=== PATIENT | female | born 1945 | race Caucasian/White ===

== ENCOUNTER 2016-09-23 04:13 | Inpatient (IN) | payer MEDICARE ==
[~2016-09-23] VITALS: Ht 170.2 cm; Wt 89.3 kg
--- NOTE | ~2016-09-23 | ECH ---
Transthoracic Echocardiography Report (TTE) Demographics Patient Name ROBERT PEDRAZA Date of Study 09/23/2016 Patient Number [id number] Visit Number [id number] Date of 1945 Room Number 411 Accession Number [id number] Gender Female Age 71 year(s) Referring Cassius BE Assembler [employer] Gill Rosenbaum [facility] Physician Cheko Hawthorne MD Physician Interpreting Jessica Botello MD Antenna Specialist Physician Supervising Ordering Physician Lluvia Hawthorne MD/IESHA BE Nurse Stress Party Host/Hostess Conclusions Summary Technically good exam. The estimated left ventricular ejection fraction is 50-55%. Severe left ventricular hypertrophy. The interventricular septum is flattened which is consistent with right ventricular pressure / and or volume overload. Mild to moderately dilated right ventricle with normal systolic function. Right ventricular wall thickness 0.86cm suggestive of right ventricular pressure overload. The left atrium is severely dilated by LA volume index measurement. Tricuspid leaflets do not completely coapt with severe tricuspid regurgitation by color Doppler. Pleural effusion present. Procedure Type of Study TTE procedure:Echo Complete SF. Procedure Date Date: 09/23/2016 Start: 11:13 AM Technical Quality: Good visualization Indications:Congestive heart failure, non-ischemic cardiomyopathy and paroxysmal a-fib. Additional Indications:pacemaker Appropriate Use Criteria: 9 Height: 67 inches Weight: 207 pounds BSA: 2.05 m Rhythm: Paced HR: 60 bpm BP: 110/66 mmHg M-Mode/2D Measurements LV Diastolic Dimension: 4.08 cm LV Systolic Dimension: 3.73 cm LV Septum Diastolic: 2.02 cm LV PW Diastolic: 1.89 cm AO Root Dimension: 2.63 cm Cardiac Output: 3.51 l/min LA Dimension: 5.27 cm Cardiac Index: 1.71 l/min*m RV Diastolic Dimension: 4.47 cm LA volume index: 55 ml/m LVOT: 1.98 cm LVOT VTI: 19.02 cm RV Base: 6 cm LV Stroke volume: 58.53 ml RV Mid: 4.6 cm LV Stroke volume index: 28.55 ml/m RV Length: 8.1 cm TAPSE: 2.2 cm TDI-S': 10 cm/s Doppler Measurements AV Peak Velocity: 1.2 m/s MV Peak E-Wave: 1.12 m/s AV Peak Gradient: 5.76 mmHg AV Mean Gradient: 3.33 mmHg LVOT Peak Velocity: 0.84 m/s AV Area (Continuity):2.35 cm PV Peak Velocity: 1.32 m/s TR Velocity:2.2 m/s PV Peak Gradient: 6.97 mmHg TR Gradient:19.36 mmHg Estimated PASP: 34.36 mmHg Estimated RAP:15 mmHg Estimated RVSP: 34 mmHg RA Area: 27.88 cm Findings Left Ventricle The left ventricle is normal in size . Severe left ventricular hypertrophy. Diastolic function indeterminate due to patient's arrhythmia. The interventricular septum is flattened which is consistent with right ventricular pressure / and or volume overload. Right Ventricle Mild to moderately dilated right ventricle with normal systolic function. Right ventricular wall thickness 0.86cm suggestive of right ventricular pressure overload. Device lead noted in the right ventricle. Left Atrium The left atrium is severely dilated by LA volume index measurement. Right Atrium The right atrium is severely dilated. Device lead seen in the right atrium. Mitral Valve Mild thickening of the mitral valve leaflets. Mild mitral regurgitation by color Doppler. Aortic Valve The aortic valve is mildly sclerotic. There is trivial aortic regurgitation by color Doppler. Tricuspid Valve Tricuspid leaflets do not completely coapt with severe tricuspid regurgitation by color Doppler.Estimated pulmonary pressures within normal range. Pulmonic Valve Normal pulmonic valve structure and function. Mild pulmonic valve regurgitation by color Doppler. Mildly dilated pulmonary artery. Pericardial Effusion Trivial pericardial effusion. Miscellaneous The ascending aorta appears mildly dilated. The maximum diameter measures 3.89 cm. Pleural Effusion Pleural effusion present. Contractility Score LV regional wall motion:(0-Non visualized 1-Normal 2-Hypokinesis 3-Akinesis 4-Dyskinesis 5-Aneurysm) Signature
--- NOTE | ~2016-09-23 | WND ---
ADMIT: 09/23/2016 RM/LOC: 411 [facility] MR#: [id number] [id number] [place], [place] [address] IRENE PEDRAZA [address] [place] [address] Wound Care Clinic SEX: F AGE: 71 : 1945 DATE OF VISIT: 09/24/2016 DIAGNOSIS: Stasis edema. TIME OF VISIT: 40 minutes. HISTORY OF PRESENT ILLNESS: Irene is a morbidly obese 71-year-old female, who was admitted through the emergency room on 09/23/2016, with increasing shortness of breath. The patient was found to have lymphedema in her left upper extremity and bilateral lower extremities. She was admitted to the hospital for the shortness of breath and wheezing and a history of congestive heart failure. They are planning to diurese her while she is in the hospital. PAST MEDICAL HISTORY: Microcytic anemia with myelodysplastic syndrome; history of GI bleed; chronic diastolic congestive heart failure, status post pacemaker; paroxysmal atrial fibrillation; lymphedema and elephantiasis of 3 extremities, bilateral lower extremities and left upper extremity; nonischemic cardiomyopathy, status post cardiac cath x4, with normal vessels; hypertension; and degenerative joint disease. This was obtained per her chart. PAST SURGICAL HISTORY: Per the chart. Left shoulder surgery x3, left mastectomy for breast cancer, cardiac ablation and permanent pacemaker implantation, laparoscopic cholecystectomy. SOCIAL HISTORY: The patient resides in her own home with her cousin. She denies any tobacco or alcohol use. She reports that she gets around with a walker. She is having increasing difficulty getting around due to the increase of fluid she is carrying. MEDICATIONS: 1. Coreg. 2. Nexium. 3. Clopidogrel. 4. Amlodipine. 5. Atorvastatin. 6. Isosorbide. ALLERGIES: Bactrim and sulfa. PHYSICAL EXAMINATION: GENERAL: Reveals an alert and oriented 71-year-old female, in no acute distress. EXTREMITIES: Assessment of bilateral lower extremities reveals no hair growth below the knee. She has 1+ dorsalis pedis pulses bilaterally. She has lymphedema and skin changes to bilateral lower extremities on the distal two- thirds of her legs. She has lymphedema nodules. She has no open or draining ADMIT: 09/23/2016 RM/LOC: 411 [facility] MR#: [id number] [address] [address] IRENE PEDRAZA [address] [place] [address] Wound Care Clinic SEX: F AGE: 71 : 1945 areas at this time. She has swelling in her toes bilaterally. She has brawny edema to bilateral lower extremities. ASSESSMENT: Lymphedema without any open wounds at this time. PLAN: After they gave her a shower as she was very unkempt on admission with significant body odor, I applied an Unna Boot Primer using the Calmoseptine impregnated gauze starting at the base of the toes to the popliteal fossa wrapping in a spiral fashion. I then used Coban from the base of the toes to the popliteal fossa. The patient tolerated the procedure well. We will follow up with her on 09/28/2016, for the next Unna Boot change. [facility] recommends lymphedema massage. Elizabeth Soto APRN/ leni JOB #: [id number] CC: Chapo Teixeira, Attending Physician Chapo Teixeira, Family Physician
[~2016-09-23 04:13] MED LIST: ASPIR-LOW81 MG PO; BENICAR40 MG PO; CARAFATE1 GM PO; COREG25 MG PO; HYDROCODON-ACE1 EAC4 PO; IMDUR DPS30 MG PO; KLOR-CON M2020 ME1 PO; KLOR-CON M2020 MEQ PO; LASIX40 M1 PO; LIPITOR DPS10 MG PO; LIPITOR DPS20 MG PO; MAALOX DPS30 ML PO; NEXIUM40 MG PO; NORVASC5 MG PO; PLAVIX75 MG PO; SINGULAIR10 MG PO; SURFAK DPS240 MG PO; TYLENOL DPS325 MG PO
--- NOTE | 2016-09-23 19:11 | ER ---
ADMIT: 09/23/2016 RM/LOC: ER [facility] MR#: [id number] [address] [facility] [address] [place], [place] [address] ROBERT PEDRAZA [address] [place], [place] [address] Emergency Room Report SEX: F AGE: 71 : 1945 DATE: 09/23/2016 HISTORY OF PRESENT ILLNESS: The patient is a 71-year-old female with a past medical history of COPD, hypertension, CHF, sleep apnea, breast cancer, [place], and status post pacemaker biventricular. The patient was brought to the ER with increased shortness of breath today since this morning. The patient denies any chest pain, and states she has recently had more shortness of breath during the last month, more episodes. The patient had wheezing en route and received 1 breathing treatment with DuoNeb, which per patient resolved a lot of her respiratory distress. In the ER, the patient had O2 saturation of 98% on room air, was mildly tachypneic with 22 to 24, and the blood pressure was 105 over 80s, and pulse was normal. EKG showed paced rhythm, ventricular paced, the Sgarbossa criteria was negative and troponin was negative. PHYSICAL EXAMINATION: HEAD and NECK: Noncontributory. CHEST: The patient had bilateral wheezing with questionable decreased breath sound in posterior left lower lung. ABDOMEN: Soft. EXTREMITIES: Left upper extremity has big lymphedema and bilateral lower extremities have big swelling, edema too. LABORATORY DATA AND IMAGING: Chest x-ray was suggestive of atelectasis and mild effusion without any obvious infiltration. The patient received another breathing treatment in the ER. WBC was 2.6, with absolute neutrophil count of 1.8. Sodium was 140 with potassium of 3.6 and glucose of 135, creatinine was 1.2, proBNP was 4670. D-dimer was elevated to 1.1, which could be caused by both cancer versus PE versus other causes. CT angiogram of the chest was negative for PE. The patient states she feels way better and very close to her baseline. The patient was not tachypneic anymore and lungs did not have any wheezing or crackles. The patient's blood pressure was 105 systolic, and there was no much space for diuresis. The patient was discharged to home with return precautions, prescription for Levaquin and prednisone, and follow up with the primary doctor today. Plan was discussed with the patient and she agreed upon it, and she acknowledged she understood it. Chino Cuevas MD/ leni JOB #: [id number] CC: Chino Cuevas MD, Attending Physician
[2016-10-01] MEDS ORDERED: NITROSTAT0.4 MG SL (19:56)
[2016-10-01] MEDS ORDERED: LAMISIL250 MG PO (19:56)
[2016-10-01] MEDS ORDERED: LAMISIL TP (19:57)
[2016-10-01] MEDS ORDERED: SURFAK DPS240 MG PO (19:57)
[2016-10-01] MEDS ORDERED: TYLENOL DPS325 MG PO (19:57)
[2016-10-01] MEDS ORDERED: XARELTO15 MG PO (19:57)
[2016-10-01] MEDS ORDERED: MYCOSTATIN PWD15 GM TP (19:58)
--- NOTE | 2016-10-03 15:25 | HP ---
ADMIT: 09/23/2016 RM/LOC: 411 [facility] MR#: [id number] [address] [facility] [address] [place], [place] [address] ROBERT PEDRAZA [address] [place] [address] History and Physical SEX: F AGE: 71 : 1945 DATE OF SERVICE: CHIEF COMPLAINT: Shortness of breath and wheezing. HISTORY OF PRESENT ILLNESS: The patient is a 71-year-old female, patient of Dr. Taveras with a history of COPD and CHF who was brought into the ER with increased shortness of breath, gradually worsening over the last 3-4 weeks. The patient states that she does have a history of CHF, has been in the hospital multiple times with aggressive diuresis of upwards of 80 pounds at a time. She has some chronic lower extremity swelling and lymphedema of the left arm, but she states gradually over the last weeks to months, she has been retaining more water, gaining weight and subsequently being less active and less ambulatory. It has gotten to the point where she cannot stand up on her own and cannot ambulate around the trailer that she lives in with her elderly cousin. She cannot perform the ADLs for herself and has difficulty bathing, dressing, and toileting. She noticed some increased chest fullness and orthopnea and came in to the hospital for these problems. ER COURSE: The patient was given 2 DuoNebs, had oxygen saturation 98% on room air. EKG showed ventricular paced rhythm. D-dimer was elevated, so CTA of the chest was performed which was negative. The patient was set to go home with diagnosis of COPD exacerbation with Levaquin and prednisone, but requested not to stay and did not feel like she could take care of herself at home. So we were consulted for admission. PAST MEDICAL HISTORY: Per the chart, the patient has a history of microcytic anemia with myelodysplastic syndrome; history of GI bleed; chronic diastolic CHF status post pacemaker; paroxysmal atrial fibrillation; lymphedema and elephantiasis of 3 extremities, bilateral lower extremities, and left upper extremity; nonischemic cardiomyopathy status post cardiac cath x4 with normal vessels; hypertension; and DJD. PAST SURGICAL HISTORY: Per the chart; left shoulder surgery x3, left mastectomy for breast cancer, cardiac ablation and permanent pacemaker implantation, lap alfred. SOCIAL HISTORY: The patient denies any tobacco or alcohol use. She lives with an elderly cousin in a trailer home and she has exceeded the cousin's capacity to care for her. She is unable to tolerate ADLs herself. She says she does get around with a walker, but she is retaining so much fluid, she is unable to even ambulate with this. MEDICATIONS: 1. Coreg 25 mg twice daily. 2. Nexium 40 mg twice daily. 3. Clopidogrel 75 mg daily. 4. Amlodipine 10 mg daily. 5. Atorvastatin 20 mg daily. 6. Isosorbide 30 mg daily. ADMIT: 09/23/2016 RM/LOC: 411 [facility] MR#: [id number] [address] [address] ROBERT PEDRAZA [address] [place] [address] [address] [place] [id number] History and Physical SEX: F AGE: 71 : 1945 ALLERGIES: BACTRIM AND SULFA. PHYSICAL EXAMINATION: VITAL SIGNS: Temp 95.6, pulse 60, respirations 16, blood pressure 110/66, and O2 sat 92% on room air. GENERAL: The patient is somewhat disoriented to the date, but otherwise in no acute distress. HEENT: Normocephalic and atraumatic. EOMI. Mucous membranes are moist. NECK: Positive JVD. No bruits noted. No lymphadenopathy palpated. CARDIOVASCULAR: The patient had a blowing systolic murmur. Loud S2, soft S3 noted. ABDOMEN: Distended. Obvious ascites, decreased bowel sounds. LUNGS: Distant due to the patient's body habitus, but some trace wheezes noted diffusely. MUSCULOSKELETAL: The patient had thick, brawny venostasis dermatitis bilateral lower extremities and greatly enlarged lymphedema of the left hand, fingers, and arm, up to the shoulder. NEURO: Cranial nerves II through XII grossly intact. ASSESSMENT AND PLAN: 1. Congestive heart failure exacerbation. 2. Failure to thrive. 3. Chronic bilateral lower extremity edema. 4. Congestive heart failure and nonischemic cardiomyopathy status post pacemaker. We will admit the patient for CHF exacerbation and diuresis. We will fluid restrict her and start her on a cardiac diet. We will hold her amlodipine for her low blood pressures. The patient will need consult from Wound Care, PT/OT and social work for placement and services as she is unable to return back to her home in her current condition and medical state. We will consult Cardiology as she follows with them for her multiple cardiac problems, help with diuresis and medical optimization. We will also get wound care consult for her significant lower extremity stasis dermatitis edema and her significant pressure ulcer risk. I will also obtain an echo as last echo was in 2014 showed an EF of 50% and moderately dilated left ventricle, severely dilated left and right atrium, severe tricuspid regurgitation. Rhys Melton MD Resident / Chapo Teixeira MD / leni JOB #: [id number] CC: Chapo Teixeira, Attending Physician Chapo Teixeira, Family Physician
--- NOTE | 2016-10-11 17:44 | DS ---
ADMIT: 09/23/2016 RM/LOC: 411 [facility] MR#: [id number] [address] [place], [place] [address] ROBERT PEDRAZA [address] [place] [address] Discharge Summary SEX: F AGE: 71 : 1945 ADMISSION DATE: 09/23/2016 DISCHARGE DATE: 09/30/2016 DISCHARGE DIAGNOSES: 1. Acute on chronic diastolic congestive heart failure. 2. Lymphedema. 3. Permanent atrial fibrillation, now on Xarelto. 4. [place] AICD (Automatic Implanted Cardiac Defibrillator). 5. Severe tricuspid regurgitation. 6. Myelodysplastic syndrome. CONSULTS: Cardiology, Dr. Hammonds. PROCEDURES: None. BRIEF HISTORY OF PRESENT ILLNESS: The patient is a 71-year-old female, a patient of Dr. Taveras, with a history of COPD and CHF who came into the ER with worsening shortness of breath over the last 3-4 weeks. The patient noted she did have history of CHF. She has been in the hospital multiple times with aggressive diuresis upwards of 80 pounds at a time. Last hospitalization was about 2 years ago. She does follow with [facility] for multiple cardiac problems but has not seen them in over a year as well. She notes that she lives at home with an elderly cousin in a trailer, has not been able to perform her ADLs for herself, has difficulty getting around the trailer and so came into the emergency room for this. In the emergency room, she was treated as COPD exacerbation with breathing treatments. Had a CT of the chest which did not reveal any pulmonary embolism but did show some bilateral pleural effusions. She was obviously fluid overloaded. She was admitted for CHF exacerbation for IV diuresis and for cardiac consultation. HOSPITAL COURSE: Cardiology saw the patient. Agreed with diagnosis of CHF exacerbation. She was started on IV Lasix. Her estimated dry weight was around 200 pounds. On admission she weighed 273 pounds. Cardiology also noted that she has permanent atrial fibrillation but was not on adequate anticoagulation so they started Xarelto and discontinued her Plavix. PT, OT and wound care saw the patient. They walked with her and her exercise tolerance improved as diuresis was ongoing during the hospital stay. Wound care addressed her significant stasis dermatitis as well as her lymphedema and got her on a lymphedema massage regimen that she is going to continue as an outpatient. She was placed in Unna boots for her stasis dermatitis and lower extremity swelling. The patient diuresed very well. Had a net loss of 8 L the 1st day, 8 L the 2nd day, 6 L the 3rd day and so on throughout her hospitalization. As creatinine slowly began to rise, diuresis was scaled back. Eventually on the end of the hospitalization, the patient weighed 196 pounds which was a net loss of 78 pounds from admission. Her creatinine at that point was 1.7. She was switched over to p.o. Lasix and tolerated this well. She was ambulating much better. Shortness of breath was resolved and she vehemently opposed placement in a residential unit for rehabilitation. Social Work was consulted. She did agree to home health care services at ADMIT: 09/23/2016 RM/LOC: 411 [facility] MR#: [id number] [address] [address] ROBERT PEDRAZA [address] [place] [address] Discharge Summary SEX: F AGE: 71 : 1945 home. She denies any other needs at this time. DISCHARGE MEDICATIONS: 1. Coreg 25 mg b.i.d. 2. Imdur 30 mg daily. 3. Potassium 40 mEq b.i.d. with meals. 4. Lamisil 250 mg tab daily x10 days. 5. Lasix 80 mg tab b.i.d. 6. Lipitor 20 mg at night. 7. Nexium 40 mg b.i.d. 8. Xarelto 15 mg daily. 9. Topical Lamisil and Mycostatin for groin rash. DISCHARGE FOLLOWUP: The patient was placed on 2500 mL fluid restriction. She was set up with outpatient lymphedema massage therapy. Home Health Care is to follow her at her place of residence. We also got her set up with [facility] [employer] [facility]. She is to follow up next week with Dr. Chapo Teixeira with a BMP and hemoglobin. She will follow with Wound Care as an outpatient. The patient was discharged in stable condition. Rhys Melton MD Resident / Chapo Teixeira MD / vdg JOB #: [id number] CC: Chapo Teixeira MD, Attending Physician Chapo Teixeira MD, Family Physician
--- NOTE | 2016-10-19 09:52 | CO ---
ADMIT: 09/23/2016 RM/LOC: [address] [facility] MR#: [id number] [id number] [place], [place] [id number] ROBERT PEDRAZA [address] [place] [address] Consultation SEX: F AGE: 71 : 1945 DATE OF CONSULTATION: 09/23/2016 ATTENDING PHYSICIAN: Chapo Teixeira CONSULTING PHYSICIAN: Cheko Hammonds MD REASON FOR CONSULTATION: CHF. HISTORY OF PRESENT ILLNESS: This is a 71-year-old female with past medical history significant for chronic diastolic heart failure (last echo was November 2014 with an EF of 50%), bilateral lower extremity edema, left upper extremity lymphedema, coronary artery disease status post heart catheterization in November of 2014 (30% stenosis of the LAD), chronic atrial fibrillation status post AV ablation and BiV ICD placement in 2004 who was admitted with a CHF exacerbation. The patient reports progressively worsening shortness of breath since April, increased lower extremity swelling and an 80 pound weight gain since she was last discharged from the hospital in June of 2015. The patient lives at home with her cousin and reports that she is no longer able to get around the house or care for herself. She is also complaining of some occasional chest pain at rest but no associated shortness of breath or diaphoresis. She does state that she is compliant with all of her medications but "does not think her water pill is helping any more." She ran out of her heart medications yesterday and states that she has not taken any medication today. PAST MEDICAL HISTORY: 1. Chronic diastolic heart failure. Last echo was in November of 2014 with an ejection fraction of 50%. Her ejection fraction has been as low as 40%. She was last seen at [facility] in July of 2015. 2. Chronic atrial fibrillation status post AV ablation and BiV ICD placement in 2004. 3. Hypertension. 4. Type 2 diabetes mellitus. 5. Hyperlipidemia. 6. History of NSTEMI in November of 2014, heart catheterization at that time shows an LAD 30% stenosis. 7. Nonischemic cardiomyopathy with ejection fraction as low as 40%. 8. Lymphedema. 9. Obstructive sleep apnea, noncompliant with CPAP. 10.History of breast cancer status post left mastectomy. 11.History of GI bleed in June of 2015 status post EGD with ulcer cauterization. PAST SURGICAL HISTORY: 1. Left shoulder surgery x3. 2. Left mastectomy. 3. Hysterectomy. 4. Cardiac ablation and pacemaker placement 2004. 5. Elbow surgery. 6. Cholecystectomy. ADMIT: 09/23/2016 RM/LOC: [address] [facility] MR#: [id number] [address] [id number] ROBERT PEDRAZA [address] [place] [address] Consultation SEX: F AGE: 71 : 1945 MEDICATIONS: As documented from her last visit at [facility] on August 15, 2015: 1. Amlodipine 5 mg 1 tablet daily. 2. Aspirin 81 mg by mouth daily although patient states she only takes this as needed. 3. Carafate 1 g orally 4 times a day and 1 hour before meals and at bedtime. 4. Coreg 25 mg 1 tablet twice daily with food. 5. Imdur 30 mg 1 tablet daily. 6. Lasix 80 mg 1 tab b.i.d. 7. Lipitor 20 mg 1 tab daily. 8. Nexium 40 mg 1 tab b.i.d. 9. Nitroglycerin 0.4 mg sublingual tablet 1 tablet once for chest pain as needed, may repeat every 5 minutes up to 3 tablets. 10.Plavix 75 mg p.o. daily. 11.Potassium chloride 20 mEq 1 tab by mouth 2 times daily with food. ALLERGIES: DEMEROL, SULFA, AND MORPHINE. SOCIAL HISTORY: She lives at home with her cousin. She denies any tobacco, alcohol, or illegal drug use. FAMILY HISTORY: Significant for grandfather who from a heart attack or stroke with brother and dad had some sort of cancer. REVIEW OF SYSTEMS: GENERAL: She does admit to being fatigued recently as well as having approximately an 80 pound weight gain in the last several months. Denies fever, chills, sweats, rash, or weight loss. EYES: Denies double vision, blurred vision, cataracts, or glaucoma. THROAT, MOUTH, AND EARS: Denies hearing loss or problems with nose, mouth or throat. RESPIRATORY: She does complain of increased shortness of breath and occasional cough. Denies sputum production, asthma, emphysema or bronchitis. Denies snoring loudly, wakefulness at night, or fatigue upon awakening. GASTROINTESTINAL: Denies heartburn or difficulty swallowing. No change in bowel habits. Denies dark or bloody stools. No history of ulcers, hiatal hernia, or gallbladder or liver disease. GENITOURINARY: Denies dysuria, hematuria, nocturia, urinary tract infection, or kidney stones. Denies history of renal insufficiency or failure. MUSCULOSKELETAL: She is unable to get up and around her house because of her lymphedema and extreme weight gain. Denies history of arthritis or gout. Denies muscle or joint pains. ENDOCRINE: Denies history of thyroid dysfunction or diabetes. HEMATOLOGIC: Denies history of anemia, easy bruising, or cancer. NEUROLOGIC: Denies chronic headaches, dizziness, syncope, stroke, seizures or numbness or tingling. PSYCHIATRIC: Denies history of mental illness or feelings of depression. PHYSICAL EXAMINATION: VITAL SIGNS: Blood pressure 110/66, pulse is 60, ADMIT: 09/23/2016 RM/LOC: [address] [facility] MR#: [id number] [address] [facility] [address] [place], [place] [id number] ROBERT PEDRAZA [address] [place] [address] Consultation SEX: F AGE: 71 : 1945 respirations 16, temp 95.6, and saturating 92% on room air. Weight is 273 pounds today. She was noted to be 207 pounds on discharge in June 2015 and was 218 pounds in July of 2015 under [facility] appointment. GENERAL: She is alert, oriented x3. No acute distress. HEART: Regular rate and rhythm. She has a 4/6 holosystolic murmur, most prominent at the left upper sternal border. No jugular venous distention. LUNGS: Bibasilar crackles. ABDOMEN: Distended. Soft and nontender. Positive bowel sounds. EXTREMITIES: Left arm lymphedema. She has 3+ pitting edema in her bilateral lower extremities on top of chronic lymphedema and chronic venous stasis changes. NEURO: Intact. PSYCH: Within normal limits. LABORATORY DATA: Sodium 140, potassium 3.6, and creatinine 1.2. White count 2.6, hemoglobin 10.5, and platelets 162. Magnesium 2.2. Cardiac enzymes were negative. BNP was 4670, it was noted to be 3400 in June of 2015. D-dimer was 1.11. Chest x-ray showed small pleural effusion on the left and ground- glass opacities in left lower lobe. CTA was negative for pulmonary embolism but showed mild bilateral pleural effusions. ASSESSMENT AND PLAN: 1. Acute on chronic diastolic heart failure. I am okay with IV Lasix that has been ordered as well as fluid restriction. If she does not respond to the IV Lasix, she may need to be started on a Lasix drip. We will plan for an echo today. 2. Permanent atrial fibrillation status post pacer. She is not currently on appropriate anticoagulation. She does have a history of gastric ulcers, but they have been treated and she has been stable, so may need to consider starting her on Xarelto. 3. Nonischemic cardiomyopathy. Plan to check an echo today. 4. Lymphedema. 5. Type 2 diabetes mellitus. 6. Hypokalemia. We will plan to replace her potassium today and recheck her labs in the morning. 7. Acute kidney injury. We will monitor. Lizzy Araya DO Resident / Cheko Hammonds MD / modl JOB #: [id number] CC: Chapo Teixeira, Attending Physician Chapo Teixeira, Family Physician
== END 2016-09-30 14:10 | disposition home health service (06) | DRG 292 ==
LOC: ER 04:13 → 4PCU 08:06
PROVIDERS: ADMIT Family Medicine
PROC: 3E0234Z Introduction of Serum, Toxoid and Vaccine into Muscle, Percutaneous Approach (ICD-10-PCS; principal; 2016-09-30)
DX: I11.0 Hypertensive heart disease with heart failure (principal); N17.9 Acute kidney failure, unspecified; J44.1 Chronic obstructive pulmonary disease with (acute) exacerbation; I36.1 Nonrheumatic tricuspid (valve) insufficiency; I42.9 Cardiomyopathy, unspecified; I48.2 Chronic atrial fibrillation; D46.9 Myelodysplastic syndrome, unspecified; B37.2 Candidiasis of skin and nail; I50.33 Acute on chronic diastolic (congestive) heart failure; Z23 Encounter for immunization; E66.9 Obesity, unspecified; Z68.35 Body mass index [BMI] 35.0-35.9, adult; E87.6 Hypokalemia; I89.0 Lymphedema, not elsewhere classified; I25.10 Atherosclerotic heart disease of native coronary artery without angina pectoris; E78.5 Hyperlipidemia, unspecified; E11.9 Type 2 diabetes mellitus without complications; G47.33 Obstructive sleep apnea (adult) (pediatric); I25.2 Old myocardial infarction; M19.90 Unspecified osteoarthritis, unspecified site; I87.2 Venous insufficiency (chronic) (peripheral); Z85.3 Personal history of malignant neoplasm of breast; Z90.12 Acquired absence of left breast and nipple; Z87.11 Personal history of peptic ulcer disease; Z79.82 Long term (current) use of aspirin; Z95.810 Presence of automatic (implantable) cardiac defibrillator